=== PATIENT | male | born 2000 | race Hispanic/Latino ===

== ENCOUNTER 2019-02-07 11:30 | Inpatient (IN) | payer SELFPAY ==
[2019-02-07 11:59] LABS: #Basophils 0.1 thou/uL (0.0-0.2); #Eosinphils 0.1 thou/uL (0.0-0.7); #Lymphocytes 1.9 thou/uL (1.20-3.40); #Monocytes 0.7 thou/uL (0.11-0.59); #Neutrophils 9.3 thou/uL (1.40-6.50); %Basophils 0.4 % (0.0-1.0); %Eosinophils 1.2 % (0.0-10.0); %Lymphocytes 15.7 % (28.0-48.0); %Monocytes 6.1 % (0.0-4.0); %Neutrophils 76.7 % (31.0-61.0); Hemoglobin 15.6 g/dL (14.0-18.0); Mean Corpuscular HGB CONC 33.7 g/dL (32.0-36.0); Mean Corpuscular Hemoglobin 28.4 pg (25.0-35.0); Mean Corpuscular Volume 84.1 fL (78.0-98.0); Mean Platelet Volume 7.5 fL (7.4-10.4); Platelet Count 249 thou/uL (130-400); RBC Distribution Width 11.8 % (11.5-14.5); White Blood Cell (WBC) Count 12.1 thou/uL (4.8-10.8)
--- NOTE | 2019-02-07 12:05 | RAD ---
Right foot 3 views HISTORY: Right foot and toe injury. FINDINGS: Lisfranc joint alignment is anatomic. Plantar arch is maintained. Amputation of the big toe at the midportion of the distal phalanx. Laceration-type fractures involvin g the distal phalanx of the second toe and the middle phalanx of the third toe. Associated soft tissue injury. Tiny radiopaque foreign body at the web soft tissues between the second and third toes . IMPRESSION: Osseous and soft tissue laceration of the right first, second, and third toes with amputa tion of the distal tuft of the right great toe.
[2019-02-07 12:07] LABS: INR-International Normal Ratio 1.1; PTT 28.9 SEC (22.9-36.1); Prothrombin Time 14.3 SEC (12.0-14.7)
[2019-02-07 12:20] LABS: ALT (SGPT) 16 U/L (8-55); AST (SGOT) 18 U/L (10-45); Albumin 4.5 g/dL (3.5-5.0); Alkaline Phosphatase 92 U/L (50-130); Anion Gap 11 mmol/L (10-20); BUN (Urea Nitrogen) 10 mg/dL (8.4-21.0); Bilirubin, Total 0.5 mg/dL (0.2-1.2); Calc. Creatinine Clearance 0 mL/min (70-130); Carbon Dioxide 24 mmol/L (22-29); Chloride 107 mmol/L (98-107); Estimated GFR-MDRD Greater than 90; Globulin 2.7 g/dL (2.4-3.5); Glucose 100 mg/dL (70-105); Potassium 4.4 mmol/L (3.5-5.1); Protein, Total 7.2 g/dL (6.0-8.3); Sodium 138 mmol/L (136-145)
[2019-02-07] MEDS ORDERED: Morphine 4 MG/ML VIAL ONE (12:44)
[2019-02-07] MEDS ORDERED: metroNIDAZOLE 500 MG/100 ML BAG ONE (12:44)
[2019-02-07] MEDS ORDERED: Fentanyl 100 MCG/2 ML VIAL ONE ×5 (14:31→17:18)
--- NOTE | 2019-02-07 16:12 | CON ---
DATE OF CONSULTATION: HISTORY OF PRESENT ILLNESS: This is a 18-year-old gentleman, who put his toes under riding a lawnmower today, amputating partially the 1st, 2nd and 3rd. PAST MEDICAL HISTORY: Negative. CURRENT MEDICATIONS: None. ALLERGIES: NONE. SOCIAL HISTORY: Does not smoke or drink. Has good social support. PHYSICAL EXAMINATION: GENERAL: Shows a pleasant gentleman, in no distress. HEENT: Normocephalic, atraumatic. LUNGS: Clear. HEART: Regular. ABDOMEN: Soft and nontender. EXTREMITIES: Right foot has complex laceration with open fracture of the 1st, 2nd, 3rd toes. Radiograph show fractures and partial amputations/irrigation and debridement of the right 1st, 2nd, and 3rd toes. After completing the amputation, debride the open fractures, wound to be left open. The patient understands and elected to proceed with surgery. Job ID: [id number]
[2019-02-07] MEDS ORDERED: Ondansetron ODT 4 MG TAB PO PRN (17:00)
[2019-02-07] MEDS ORDERED: Meperidine HCl/PF 25 MG/ML VIAL ONE (17:00)
[2019-02-07] MEDS ORDERED: Ketorolac Tromethamine 30 MG/ML VIAL ONE (17:09)
[2019-02-07 18:08] VITALS: BMI 31.0
[2019-02-07] MEDS ORDERED: Meperidine HCl/PF 25 MG/ML VIAL IV PRN (18:12)
[2019-02-07] MEDS ORDERED: Promethazine HCl 25 MG/ML VIAL IM/IV PRN (18:12)
[2019-02-07] MEDS ORDERED: Ketorolac Tromethamine 30 MG/ML VIAL IM/IV PRN (18:12)
[2019-02-07] MEDS ORDERED: Ondansetron HCl/PF 4 MG/2 ML Vial IVP PRN (18:12)
[2019-02-07] MEDS ORDERED: HYDROcodone/Acetaminophen 10/325 mg Tablet PO PRN ×2 (18:40)
[2019-02-07] MEDS: HYDROcodone/Acetaminophen 10/325 mg Tablet PO PRN (20:12)
[2019-02-07] MEDS: CEFAZOLIN 2 GM in Premix Bag 1 BAG IVPB SCH (21:47)
[2019-02-08] MEDS: HYDROcodone/Acetaminophen 10/325 mg Tablet PO PRN ×2 (02:52→12:38)
[2019-02-08] MEDS: CEFAZOLIN 2 GM in Premix Bag 1 BAG IVPB SCH ×2 (05:21→13:22)
[2019-02-08] MEDS ORDERED: Enoxaparin Sodium 40 MG/0.4 ML SYRINGE SC SCH (09:00)
[2019-02-08] MEDS: Fentanyl 100 MCG/2 ML VIAL SLOW IVP PRN (10:05)
[2019-02-08] MEDS ORDERED: FLU VACC QS2019-20(6MOS UP)/PF 60 MCG/0.5 ML SYRINGE IM ONE (18:15)
[2019-02-08] MEDS: CEFAZOLIN 1 GM VIAL SLOW IVP SCH (22:20)
[2019-02-09] MEDS: CEFAZOLIN 1 GM VIAL SLOW IVP SCH ×3 (05:10→22:03)
--- NOTE | 2019-02-09 10:57 | OP ---
DATE OF PROCEDURE: 02/07/2019 PREOPERATIVE DIAGNOSIS: Traumatic injury to the right foot from a lawnmower. POSTOPERATIVE DIAGNOSIS: Partial amputation of the first, second, and third toes with open fractures and gross contamination. PROCEDURES PERFORMED: 1. Irrigation and debridement of open fractures, great toe and amputation of great toe. 2. Irrigation and debridement of open fractures, second toe and partial amputation of second toe. 3. Irrigation and debridement, third toe open fractures and amputation of third toe. DESCRIPTION OF PROCEDURE: The patient was taken to the operating room, where general anesthesia was induced. He received antibiotics preoperatively. Right foot was prepped and draped in usual sterile fashion. I addressed the great toe initially. The distal portion of the toe including the nail was completely gone. There was gross contamination with grass and dirt. I extended the laceration medially and laterally to create fishmouth flaps, amputated remainder of the distal phalanx and a portion of the proximal phalanx. Pulsatile lavage irrigation was performed. A second toe flap was removed. I removed a portion of the phalangeal bone at the joint level. I irrigated the wound. I removed the dirt and grass from the wound and debrided the remaining metaphyseal bone of the third toe in a similar fashion. There was an unstable flap, which had poor vascularity. I removed this along with a great deal of contamination, amputated the phalanx and then scraped the bone from the metaphysis of the remaining phalanx. Pulsatile irrigation was performed throughout. Tourniquet was released. Irrigation was performed. Hemostasis was obtained. The wound was packed open with sterile dressing with plans to return to the operating room for irrigation and debridement and possible closure. Job ID: [id number]
[2019-02-09] MEDS ORDERED: Midazolam HCl 2 mg/2 ml Vial ONE (11:19)
[2019-02-09] MEDS ORDERED: Fentanyl 100 MCG/2 ML VIAL ONE (11:19)
[2019-02-09] MEDS ORDERED: Promethazine HCl 25 MG/ML VIAL IM PRN (11:33)
[2019-02-09] MEDS ORDERED: Ondansetron HCl/PF 4 MG/2 ML Vial IVP PRN (11:33)
[2019-02-09] MEDS ORDERED: Promethazine HCl 25 MG/ML VIAL SLOW IVP PRN (11:33)
--- NOTE | 2019-02-09 15:02 | OP ---
DATE OF PROCEDURE: 02/09/2019 PROCEDURE PERFORMED: Right foot re-amputation of the second toe and complex closure of first and third toes. PREOPERATIVE DIAGNOSIS: Traumatic amputations of toes from a lawnmower. POSTOPERATIVE DIAGNOSIS: Traumatic amputations of toes from a lawnmower. ANESTHESIA: General. ESTIMATED BLOOD LOSS: Minimal. SPECIMEN: None. DRAINS: None. COMPLICATIONS: None. DESCRIPTION OF PROCEDURE: The patient was taken to the operating room, where general anesthesia was induced. Right leg was prepped and draped in usual sterile fashion. I irrigated the wounds copiously. I removed all the old hematoma from the wounds and from the bones of the great toe. I was able to mobilize flaps and closed by mobilizing flaps to close over the bony defect and get watertight seal over the bone with nylon sutures. Second toe was too deficient in terms of soft tissues. I had to use a rongeur and amputate the second toe back another phalanx and irrigate and then close this with complex fashion by elevating flaps using nylon suture as well. Third toe irrigated to create flaps and closed with nylon suture. Sterile dressing was applied. There were no complications. Job ID: [id number]
[2019-02-09] MEDS: HYDROcodone/Acetaminophen 10/325 mg Tablet PO PRN (20:58)
[2019-02-09] MEDS: Fentanyl 100 MCG/2 ML VIAL SLOW IVP PRN (23:49)
[2019-02-10] MEDS: HYDROcodone/Acetaminophen 10/325 mg Tablet PO PRN ×3 (03:04→13:34)
[2019-02-10] MEDS: Fentanyl 100 MCG/2 ML VIAL SLOW IVP PRN (03:36)
[2019-02-10] MEDS: CEFAZOLIN 1 GM VIAL SLOW IVP SCH ×2 (05:31→13:34)
[2019-02-10 12:26] VITALS: BP 137/66; TEMP 98.5
== END 2019-02-10 16:53 | disposition home or self-care (01) | DRG 909 ==
LOC: ERS 11:30 → SDC/OP 15:02 → SURG A 15:03
PROVIDERS: ADMIT Orthopaedic Surgery; ATTEND Orthopaedic Surgery
PROC: 0Y6P0Z3 Detachment at Right 1st Toe, Low, Open Approach (ICD-10-PCS; principal; 2019-02-07)
PROC: 0Y6T0Z3 Detachment at Right 3rd Toe, Low, Open Approach (ICD-10-PCS; 2019-02-07)
PROC: 0Y6R0Z3 Detachment at Right 2nd Toe, Low, Open Approach (ICD-10-PCS; 2019-02-07)
PROC: 3E02340 Introduction of Influenza Vaccine into Muscle, Percutaneous Approach (ICD-10-PCS; 2019-02-08)
PROC: 0Y6R0Z2 Detachment at Right 2nd Toe, Mid, Open Approach (ICD-10-PCS; 2019-02-09)
DX: S98.121A Partial traumatic amputation of right great toe, initial encounter (principal); S98.221A Partial traumatic amputation of two or more right lesser toes, initial encounter; W28.XXXA Contact with powered lawn mower, initial encounter; Z23 Encounter for immunization
CPT/HCPCS: 36415; 80053; 85025; 85610; 85730; 86850; 86900; 86901; 90471; 90686; 96361; 96365; 96375; G0008; G0390; J0690; J1580; J1650; J1885; J2175; J2250; J2270; J3010; J3490